=== PATIENT | female | born 1945 | race Caucasian/White ===

== ENCOUNTER 2020-03-05 14:50 | Outpatient (CLI) | payer MEDICARE ==
--- NOTE | 2020-03-05 15:26 | CT ---
EXAM: CT sinuses without contrast HISTORY: Chronic sinusitis COMPARISON: None TECHNIQUE: Multiple contiguous axial images were obtained and a CT of the face without contrast. Sagi ttal and coronal reformats were performed. FINDINGS: No facial fractures are identified. No facial soft tissue swelling is seen. The globes and retrobulbar soft tissues are unremarkable. The visualized paranasal sinuses are well aerated without evidence of opacification. No mucosal thick ening or mucous retention cysts are seen in any of the sinuses. The mastoid air cells are well aerated. Visualized intracranial structures are unremarkable. IMPRESSION: No significant sinus disease.
== END 2020-03-05 14:51 | disposition home or self-care (01) ==
LOC: SCSCT 14:50
PROVIDERS: ATTEND Allergy & Immunology
DX: J32.9 Chronic sinusitis, unspecified (principal)